=== PATIENT | female | born 1995 | race Caucasian/White ===

== ENCOUNTER 2020-01-21 12:51 | Outpatient (CLI) | payer OTHER, MEDICAID, SELFPAY ==
--- NOTE | ~2020-01-21 | US_ITS ---
EXAMINATION: US OB <=14 wk fetus w TV DATE: 01/21/2020 13:47 INDICATION: Pelvic pain during first trimester TECHNIQUE: Real-time pelvic transabdominal and transvaginal ultrasound was performed. COMPARISON: None. FINDINGS: The uterus measures 6.7 x 3.8 x 4.7 cm. There is an intrauterine gestational sac. A yolk s ac is identified. heart motion is identified measuring 123 beats per minute (bpm) by M-mode Dop pler. The crown rump length measures 6 mm , which correlates with an estimated gestational age of 6 weeks and 3 day(s) (+/-) 4 day(s). The right ovary measures 2.8 x 2.3 x 2.1 cm and contains a 1.9 cm isoechoic area, consistent with hem orrhagic cyst or endometrioma. The left ovary measures 3.1 x 1.9 x 2.1 cm. There is no free fluid in the pelvis. IMPRESSION: 1. Live intrauterine with an estimated gestational age of 6 weeks and 3 day(s) (+/-) 4 day( s) and an estimated delivery date of 09/12/2020. Reviewed, dictated and finalized at location B. IMPRESSION: 1. Live intrauterine with an estimated gestational age of 6 weeks and 3 day(s) (+/-) 4 day(s) and an estimated delivery date of 09/12/2020.
== END 2020-01-21 12:52 | disposition home or self-care (01) ==
PROVIDERS: Visit Provider Nurse Practitioner Family
DX: R10.2 Pelvic and perineal pain (principal); Z32.01 Encounter for pregnancy test, result positive; Z3A.01 Less than 8 weeks gestation of pregnancy
CPT/HCPCS: 76801; 76817

== ENCOUNTER 2020-06-08 17:32 | Observation (INO) | payer OTHER, SELFPAY ==
[2020-06-08 17:40] VITALS: TEMP 36.9
[2020-06-08 17:51] VITALS: BMI 23.6
[2020-06-08 18:00] VITALS: BP 124/87; PULSE 84
[2020-06-08 18:12] LABS: Add Urine Microscopic? YES; Appearance Urine Clear (Clear); Bacteria Urine Trace /hpf; Bilirubin Urine Negative (Negative); Blood Urine Negative (Negative); Color Urine Yellow (Yellow); Glucose Urine UA 1+ mg/dL (Negative); Ketones Urine Negative (Negative); Leukocyte Esterase Ur 3+ LEU/UL (NEGATIVE); Mucus Urine Rare /lpf; Nitrate Urine Negative (Negative); Protein Urine Negative (Negative); Specific Grav Ur 1.015 (1.001-1.035); Squamous Epithelial Cell Urine Moderate /hpf (Few); Urobilinogen Urine Negative mg/dL (<2.0)
--- NOTE | 2020-06-11 08:25 | P.PNOB_ITS ---
OB - Triage/Final Diagnosis Evaluation Laboratory results: Laboratory Tests 06/08/20 18:00 Urine Color Yellow Urine Appearance Clear Urine pH 6.0 Ur Specific [place] 1.015 Urine Protein Negative Urine Glucose (UA) 1+ H Urine Ketones Negative Ur Blood (Man) Negative Urine Nitrate Negative Urine Bilirubin Negative Urine Urobilinogen Negative Ur Leukocyte Esterase 3+ H Urine RBC 6-10 H Urine WBC 10-15 H Ur Squamous Epith Cells Moderate H Urine Bacteria Trace Urine Mucus Rare Final Diagnosis (1) Decreased movement: Code(s): O36.8190 - Decreased movements, unspecified trimester, not applicable or unspecified Status: Acute
== END 2020-06-08 19:00 | disposition home or self-care (01) ==
PROVIDERS: Admitting Provider Obstetrics & Gynecology; PCP Nurse Practitioner Family; Visit Provider Obstetrics & Gynecology
DX: O36.8120 Decreased fetal movements, second trimester, not applicable or unspecified (principal); Z3A.26 26 weeks gestation of pregnancy
CPT/HCPCS: 81001; 87086; 87088; G0378; G0379

== ENCOUNTER 2020-08-09 22:59 | Observation (INO) | payer OTHER, SELFPAY ==
[2020-08-09 23:10] VITALS: TEMP 36.5
[2020-08-09 23:20] VITALS: BMI 25.9
--- NOTE | 2020-08-09 23:22 | OBADM ---
This patient, Brianna Waterman, admitted to the OB room OB Post 116 for observation. Patient/family oriented to hospital policies and general routines including ID bracelet, bed and alarms, visiting hours, pain management, procedures, bathroom and other care routines, personal items, smoking policy, room service/diet, and visiting hours. Patient/Family are encouraged to report perceived risks to care and to ask questions if they do not understand what they are told or what they should do.
[2020-08-09 23:31] VITALS: BP 119/80; PULSE 74
--- NOTE | 2020-08-10 08:12 | PM.OBTRLD ---
OB - Triage/Final Diagnosis Visit Information Date of evaluation: 08/09/20 Reason for evaluation: other (fall) Evaluation Vital signs: Vital Signs - 24 hr 08/09/20 23:10 08/09/20 23:31 Temperature 36.5 C Pulse Rate 74 Blood Pressure 119/80
== END 2020-08-10 00:49 | disposition home or self-care (01) ==
PROVIDERS: Admitting Provider Student in an Organized Health Care Education/Training Program; PCP Nurse Practitioner Family; Visit Provider Student in an Organized Health Care Education/Training Program
DX: Z04.1 Encounter for examination and observation following transport accident (principal); O99.893 Other specified diseases and conditions complicating puerperium; V89.2XXA Person injured in unspecified motor-vehicle accident, traffic, initial encounter; Z3A.34 34 weeks gestation of pregnancy
CPT/HCPCS: 84112; G0378; G0379

== ENCOUNTER 2020-09-06 07:53 | Outpatient (CLI) | payer OTHER, SELFPAY ==
[2020-09-06] VITALS (13 sets, daily range): BP systolic 116–138; BP diastolic 83–103; PULSE 78–105; RESP 18; TEMP 36.7; BMI 25.9
[2020-09-06 09:11] LABS: Basophils Percent Auto 0.3 % (0.2-1.2); Eosinophils Absolute Auto 0.2 K/mm3 (0-0.3); Eosinophils Percent Auto 2.4 % (0-4.4); Hematocrit 33.7 % (37.0-47.0); Hemoglobin 11.7 g/dL (12.0-15.0); Immature Granulocyte Absolute 0.04 K/mm3 (0.00-0.031); Immature Granulocyte Percent A 0.4 % (0-0.5); Lymphocytes Absolute Auto 1.85 K/mm3 (0.9-3.2); Lymphocytes Percent Auto 19.6 % (18.3-44.2); Mean Corpuscular HGB Conc 34.7 g/dl (32-36); Mean Corpuscular Hemoglobin 31.1 pg (26-34); Mean Corpuscular Volume 89.6 fl (80-100); Mean Platelet Volume 10.5 fl (7.4-10.4); Monocytes Absolute Auto 0.8 K/mm3 (0.1-0.6); Monocytes Percent Auto 8.6 % (2.6-8.5); Neutrophils Absolute Auto 6.5 K/mm3 (1.3-6.7); Neutrophils Percent Auto 68.7 % (45.5-73.1); Platelet Count Result 232 k/mm3 (150-375); Red Blood Count 3.76 M/mm3 (4.2-5.4); Red Cell Distribution Width 12.2 % (11.5-14.5); White Blood Count 9.4 K/mm3 (4.5-10.0)
[2020-09-06 09:16] LABS: Add Urine Microscopic? YES; Appearance Urine Cloudy (Clear); Bacteria Urine 1+ /hpf; Bilirubin Urine Negative (Negative); Blood Urine 1+ (Negative); Color Urine Yellow (Yellow); Glucose Urine UA Negative (Negative); Ketones Urine Negative (Negative); Leukocyte Esterase Ur 2+ LEU/UL (Negative); Mucus Urine Rare /lpf; Nitrate Urine Negative (Negative); Protein Urine Negative (Negative); Specific Grav Ur 1.011 (1.001-1.035); Squamous Epithelial Cell Urine Many /hpf (Few); Urobilinogen Urine Negative mg/dL (<2.0)
[2020-09-06 09:23] LABS: Total Protein Urine Random 11 mg/dL
[2020-09-06 09:24] LABS: Alanine Aminotransferase 11 U/L (4-35); Albumin Level 3.5 g/dL (3.5-5.1); Alkaline Phosphatase 139 U/L (38-126); Anion Gap 8 mmol/L (8-16); Aspartate Amino Transferase 24 U/L (14-36); Bilirubin,Total 0.3 mg/dL (0.2-1.3); Blood Urea Nitrogen 8 mg/dL (7-17); Calcium 8.8 mg/dL (8.4-10.2); Carbon Dioxide 23 mmol/L (22-30); Chloride 103 mmol/L (98-107); Estimated CRCL calculation 168 ml/min; Estimated Glomerular Filt Rate > 60; Glucose 82 mg/dL (65-105); Sodium 134 mmol/L (137-145); Uric Acid 4.7 mg/dL (2.5-7.5)
--- NOTE | 2020-09-06 09:31 | PC.NURSE ---
0900, 0915, and 0928 BP's were taken in pt's right arm (DBP higher than in left). 135/102, 138/103. and 134/97 respectively. BP in left arm at 0926 is 119/83.
--- NOTE | 2020-09-06 10:09 | PC.NURSE ---
Dr. Neal returned page and informed of lab results and reactive NST. Discussed BP's including higher DBP in right arm. Headache has gone down from a 7 to a 4. MD will call in prescription for Fioricet. OK to discharge pt to home and keep office appointment on Tuesday. Breakfast tray was just brought to pt. Will discharge when she is done eating.
== END 2020-09-06 10:38 | disposition home or self-care (01) ==
LOC: ANHOBOP 07:58 → ANHOBPP 07:58
PROVIDERS: PCP Nurse Practitioner Family; Visit Provider Obstetrics & Gynecology
DX: O13.9 Gestational [pregnancy-induced] hypertension without significant proteinuria, unspecified trimester (principal); Z3A.00 Weeks of gestation of pregnancy not specified
CPT/HCPCS: 36415; 59025; 80053; 81001; 82570; 84156; 84550; 85025; 87086; 87088; 99199; A9270

== ENCOUNTER 2020-09-09 16:43 | Inpatient (IN) | payer OTHER, SELFPAY ==
[2020-09-09] VITALS (15 sets, daily range): BP systolic 124–143; BP diastolic 88–100; PULSE 83–105; TEMP 36.4–36.7; BMI 26.6
[2020-09-09 18:56] LABS: Basophils Percent Auto 0.3 % (0.2-1.2); Eosinophils Absolute Auto 0.1 K/mm3 (0-0.3); Eosinophils Percent Auto 1.4 % (0-4.4); Hematocrit 34.5 % (37.0-47.0); Hemoglobin 11.9 g/dL (12.0-15.0); Immature Granulocyte Absolute 0.06 K/mm3 (0.00-0.031); Immature Granulocyte Percent A 0.6 % (0-0.5); Lymphocytes Absolute Auto 1.84 K/mm3 (0.9-3.2); Lymphocytes Percent Auto 18.3 % (18.3-44.2); Mean Corpuscular HGB Conc 34.5 g/dl (32-36); Mean Corpuscular Hemoglobin 30.9 pg (26-34); Mean Corpuscular Volume 89.6 fl (80-100); Mean Platelet Volume 10.5 fl (7.4-10.4); Monocytes Percent Auto 9.5 % (2.6-8.5); Neutrophils Percent Auto 69.9 % (45.5-73.1); Platelet Count Result 256 k/mm3 (150-375); Red Blood Count 3.85 M/mm3 (4.2-5.4); Red Cell Distribution Width 12.2 % (11.5-14.5); White Blood Count 10.1 K/mm3 (4.5-10.0)
[2020-09-09 19:07] LABS: Uric Acid 4.1 mg/dL (2.5-7.5)
[2020-09-09 19:08] LABS: Alanine Aminotransferase 14 U/L (4-35); Albumin Level 3.7 g/dL (3.5-5.1); Alkaline Phosphatase 137 U/L (38-126); Anion Gap 7 mmol/L (8-16); Aspartate Amino Transferase 23 U/L (14-36); Bilirubin,Total 0.3 mg/dL (0.2-1.3); Blood Urea Nitrogen 9 mg/dL (7-17); Calcium 9.3 mg/dL (8.4-10.2); Carbon Dioxide 22 mmol/L (22-30); Chloride 106 mmol/L (98-107); Estimated Glomerular Filt Rate > 60; Glucose 111 mg/dL (65-105); Potassium 3.8 mmol/L (3.4-5.0); Sodium 135 mmol/L (137-145)
[2020-09-09] MEDS: DINOPROSTONE 10 MG VAG INSERT VAGINAL (19:33)
[2020-09-09] MEDS: LACTATED RINGERS 1,000 ML 125 ML IV CONT (19:47)
[2020-09-09] MEDS: ceFAZolin 2 GM/D5W 50 ML 2 GM/50 ML BAG IVPB (19:47)
[2020-09-09 20:21] LABS: Add Urine Microscopic? YES; Appearance Urine Cloudy (Clear); Bacteria Urine Trace /hpf; Bilirubin Urine Negative (Negative); Blood Urine Negative (Negative); Color Urine Yellow (Yellow); Glucose Urine UA Negative (Negative); Ketones Urine Negative (Negative); Leukocyte Esterase Ur 1+ LEU/UL (NEGATIVE); Mucus Urine Rare /lpf; Nitrate Urine Negative (Negative); Protein Urine 1+ mg/dL (Negative); Specific Grav Ur 1.015 (1.001-1.035); Squamous Epithelial Cell Urine Many /hpf (Few); Urobilinogen Urine Negative mg/dL (<2.0)
[2020-09-09 20:24] LABS: Total Protein Urine Random 15 mg/dL
[2020-09-10] VITALS (146 sets, daily range): BP systolic 116–188; BP diastolic 69–141; PULSE 66–156; RESP 17; TEMP 36.4–37.3; O2SAT 76–100
[2020-09-10] MEDS: fentaNYL CITRATE INJ (*CRX) 100 MCG/2 ML VIAL 50 MCG IV PUSH (05:02)
[2020-09-10] MEDS: OXYTOCIN 30 UNITS/NS 500 ML 30 UNITS/500 ML BAG 6 UNITS IV CONT (06:34)
--- NOTE | 2020-09-10 06:40 | LDADM ---
This patient, Brianna Waterman, was admitted to Labor/Delivery/Recovery 109 on 09/09/20 at 16:43. Plans for labor, pain management and were discussed with patient. Patient/family oriented to hospital policies and general routines including ID bracelet, bed and alarms, visiting hours, pain management, procedures, bathroom and other care routines, personal items, smoking policy, room service/diet and guest tray routines, infant security routines, and visiting hours. Patient/Family are encouraged to report perceived risks to care and to ask questions if they do not understand what they are told or what they should do. See OBIX for further documentation.
[2020-09-10 07:35] LABS: Rapid Plasma Reagin Non-Reactive (NonReactive)
--- NOTE | 2020-09-10 08:28 | WPDANESEPP ---
Anes - Eval Pre Procedure Procedure: labor epidural Date/Time: 09/10/20 08:28 Surgeon: adriana Pre Op Diagnosis: Induction of Labor Patient Data Age: 25 Gender: F Height: 1.7 m Weight: 77 kg Last Vital Signs Temp 36.8 C 09/10/20 07:00 Pulse 82 09/10/20 08:15 BP 148/101 H 09/10/20 08:15 Allergies Allergy/AdvReac Type Severity Reaction Status Date / Time amoxicillin Allergy Unknown Rash Verified 09/06/20 08:31 Penicillins Allergy Unknown Rash Verified 09/06/20 08:31 sulfamethoxazole Allergy Unknown Hives Verified 09/06/20 08:32 trimethoprim Allergy Unknown Hives Verified 09/06/20 08:32 Home Medications Medication Instructions Recorded Confirmed Type Vitamin Plus Low Iron 1 tablet DAILY 08/09/20 09/06/20 History sertraline 50 mg DAILY 08/09/20 09/06/20 History Laboratory Tests 09/09/20 09/09/20 09/09/20 18:49 18:49 18:49 WBC 10.1 K/mm3 H K/mm3 (4.5-10.0) RBC 3.85 M/mm3 L M/mm3 (4.2-5.4) Hgb 11.9 g/dL L g/dL (12.0-15.0) Hct 34.5 % L % (37.0-47.0) MCV 89.6 fl fl (80-100) MCH 30.9 pg pg (26-34) MCHC 34.5 g/dl g/dl (32-36) RDW 12.2 % % (11.5-14.5) Plt Count 256 k/mm3 k/mm3 (150-375) MPV 10.5 fl H fl (7.4-10.4) Immature Gran % (Auto) 0.6 % H % (0-0.5) Neut % (Auto) 69.9 % % (45.5-73.1) Lymph % (Auto) 18.3 % % (18.3-44.2) [place] % (Auto) 9.5 % H % (2.6-8.5) Eos % (Auto) 1.4 % % (0-4.4) Baso % (Auto) 0.3 % % (0.2-1.2) Lymph # (Auto) 1.84 K/mm3 K/mm3 (0.9-3.2) [place] # (Auto) 1.0 K/mm3 H K/mm3 (0.1-0.6) Eos # (Auto) 0.1 K/mm3 K/mm3 (0-0.3) Baso # (Auto) 0.0 K/mm3 K/mm3 (0.0-0.1) Abs Immat Gran (auto) 0.06 K/mm3 H K/mm3 (0.00-0.031) Absolute Neuts (auto) 7.0 K/mm3 H K/mm3 (1.3-6.7) Absolute Nucleated RBC 0.0 K/mm3 K/mm3 (0.0-0.012) Nucleated RBC % 0.0 % % (0.0-0.2) Sodium Potassium Chloride Carbon Dioxide Anion Gap BUN Creatinine Estim Creat Clear Calc Estimated GFR Glucose Uric Acid 4.1 mg/dL mg/dL (2.5-7.5) Calcium Total Bilirubin AST ALT Alkaline Phosphatase Total Protein Albumin Urine Color Urine Appearance Urine pH Ur Specific [place] Urine Protein Urine Glucose (UA) Urine Ketones Ur Blood (Man) Urine Nitrate Urine Bilirubin Urine Urobilinogen Ur Leukocyte Esterase Urine RBC Urine WBC Ur Squamous Epith Cells Urine Bacteria Urine Mucus U Random Total Protein Urine Collection Time Ur 24 Hour Volume Urine Creatinine Height (in) Creatinine Clearance RPR Non-reactive (NonReactive) Blood Type Antibody Screen 09/09/20 09/09/20 09/09/20 18:49 18:49 19:57 WBC RBC Hgb Hct MCV MCH MCHC RDW Plt Count MPV Immature Gran % (Auto) Neut % (Auto) Lymph % (Auto) [place] % (Auto) Eos % (Auto) Baso % (Auto) Lymph # (Auto) [place] # (Auto) Eos # (Auto) Baso # (Auto) Abs Immat Gran (auto) Absolute Neuts (auto) Absolute Nucleated RBC Nucleated RBC % Sodium 135 mmol/L L mmol/L (137-145) Potassium
[2020-09-10] MEDS: LACTATED RINGERS 1,000 ML 125 ML IV CONT ×2 (08:29→09:58)
--- NOTE | 2020-09-10 08:55 | WPDOBADMIT ---
Obstetrics - Admit Note Admission Note: record reviewed. Additions to the history and/or subsequent changes in the physical findings follow. 25 y/o G1 at 39 2/7 weeks who presented last evening because of headaches and elevated bp readings at home. BP here has been overall OK. Headache resolved after Fioricet. She has opted for induction of labor. Had Cervidil overnight, then had SROM at 0530. Now feeling more contractions. Receiving Ancef for GBS colonization. AVSS NST reactive TOCO: irregular contractions ABD soft, nontender, gravid, vertex EXT nontender Cervix 2-3/50/-2. AROM forebag with clear fluid. IUPC placed. A: IUP at term with intermittently elevated bp and headaches. Headache has resolved. No evidence of preeclampsia. GBS pos. P: Induction of labor, as above. S/p Cervidil. Now receiving oxytocin. Anticipate . Ancef for GBS.
[2020-09-10] MEDS: ONDANSETRON INJ 4 MG/2 ML VIAL IV PUSH (10:00)
--- NOTE | 2020-09-10 12:15 | PM.OBPNLAB ---
Pain Control Date/time seen: 09/10/20 14:17 Comments: Comfortable with epidural. Pelvic Exam Dilation (cm): 4 Effacement (%): 80 station: -1 Contractions Contraction pattern: Regular Status status: Category l Assessment and Plan Comments: Continue labor.
--- NOTE | 2020-09-10 14:17 | PM.OBDSVD ---
DS: Admitting Diagnosis Admitting Diagnosis Admitting Diagnosis: Induction of Labor DS: Discharge Diagnosis Discharge Diagnosis (1) (normal spontaneous vaginal delivery): Code(s): O80 - Encounter for full-term uncomplicated delivery Status: Acute OB - DS: Summary OB Procedures : None OB Procedures Intrapartum: Spontaneous Vag Delivery OB Procedures: : None DS: Data Data Completed and Pending Labs on day of discharge: Labs from last 24 hours 09/09/20 09/09/20 09/09/20 19:57 19:57 18:49 WBC RBC Hgb Hct MCV MCH MCHC RDW Plt Count MPV Immature Gran % (Auto) Neut % (Auto) Lymph % (Auto) [place] % (Auto) Eos % (Auto) Baso % (Auto) Lymph # (Auto) [place] # (Auto) Eos # (Auto) Baso # (Auto) Abs Immat Gran (auto) Absolute Neuts (auto) Absolute Nucleated RBC Nucleated RBC % Sodium 135 L Potassium 3.8 Chloride 106 Carbon Dioxide 22 Anion Gap 7 L BUN 9 Creatinine 0.60 L Estim Creat Clear Calc Not Reportable Estimated GFR > 60 Glucose 111 H Uric Acid Calcium 9.3 Total Bilirubin 0.3 AST 23 ALT 14 Alkaline Phosphatase 137 H Total Protein 7.0 Albumin 3.7 Urine Color Yellow Urine Appearance Cloudy H Urine pH 6.0 Ur Specific [place] 1.015 Urine Protein 1+ H Urine Glucose (UA) Negative Urine Ketones Negative Ur Blood (Man) Negative Urine Nitrate Negative Urine Bilirubin Negative Urine Urobilinogen Negative Ur Leukocyte Esterase 1+ H Urine RBC 3-5 H Urine WBC 4-6 H Ur Squamous Epith Cells Many H Urine Bacteria Trace Urine Mucus Rare U Random Total Protein 15 Urine Collection Time Cancelled Ur 24 Hour Volume Cancelled Urine Creatinine 116.0 Height (in) Cancelled Creatinine Clearance Cancelled RPR Blood Type Antibody Screen 09/09/20 09/09/20 09/09/20 18:49 18:49 18:49 WBC 10.1 H RBC 3.85 L Hgb 11.9 L Hct 34.5 L MCV 89.6 MCH 30.9 MCHC 34.5 RDW 12.2 Plt Count 256 MPV 10.5 H Immature Gran % (Auto) 0.6 H Neut % (Auto) 69.9 Lymph % (Auto) 18.3 [place] % (Auto) 9.5 H Eos % (Auto) 1.4 Baso % (Auto) 0.3 Lymph # (Auto) 1.84 [place] # (Auto) 1.0 H Eos # (Auto) 0.1 Baso # (Auto) 0.0 Abs Immat Gran (auto) 0.06 H Absolute Neuts (auto) 7.0 H Absolute Nucleated RBC 0.0 Nucleated RBC % 0.0 Sodium Potassium Chloride Carbon Dioxide Anion Gap BUN Creatinine Estim Creat Clear Calc Estimated GFR Glucose Uric Acid Calcium Total Bilirubin AST ALT Alkaline Phosphatase Total Protein Albumin Urine Color Urine Appearance Urine pH Ur Specific [place] Urine Protein Urine Glucose (UA) Urine Ketones Ur Blood (Man) Urine Nitrate Urine Bilirubin Urine Urobilinogen Ur Leukocyte Esterase Urine RBC Urine WBC Ur Squamous Epith Cells Urine Bacteria Urine Mucus U Random Total Protein Urine Collection Time Ur 24 Hour Volume Urine Creatinine Height (in) Creatinine Clearance RPR Non-reactive Blood Type A Positive Antibody Screen Negative 09/09/20 18:49 WBC RBC Hgb Hct MCV MCH MCHC RDW Plt Count MPV Immature Gran % (Auto) Neut % (Auto) Lymph % (Auto) [place] % (Auto) Eos % (Auto) Baso % (Auto) Lymph # (Auto) [place] # (Auto) Eos # (Auto) Baso # (Auto) Abs Immat Gran (auto) Absolute Neuts (auto) Absolute Nucleated RBC Nucleated RBC % Sodium Potassium Chloride Carbon Dioxide Anion Gap BUN Creatinine Estim Creat Clear Calc Estimated GFR Glucose Uric Acid 4.1 Calcium Total Bilirubin AST ALT Alkaline Phosphatase Total Protein Albumin Urine Color Urine Appearance Urine pH Ur Specific [place] Urine Protein
--- NOTE | 2020-09-10 15:58 | P.PCNOB_ITS ---
OB - Delivery Note Procedure Delivery date: 09/10/20 Procedure: Induction of labor with Induction method: per pitocin protocol and per cervidil protocol Delivery monitor: external FHT, external uterine and internal uterine Route of delivery: Laceration Description: Perineal - 2nd Degree Delivery repair: vicryl (3-0) Specimen: Yes (cord blood) Estimated blood loss (mL): 140 Anesthesia type: Epidural Disposition: PACU Complications: None Narrative: 25 y/o G1 at 39 2/7 weeks gestation who presented to the hospital with a headache and an elevated bp at home. Ruled out for preeclampsia here, and her headache improved with Fioricet. However, she opted to go ahead with elective induction of labor. Cervidil was placed overnight. Ancef was given IV for GBS colonization. She had SROM at 0530 and the Cervidil was withdrawn and oxytocin started intravenously. She received an epidural for pain control. Her labor progressed and her cervix dilated completely. She pushed with good effort and delivered the 's head to the perineum, followed by the body. The nose and mouth were bulb suctioned. After a delay, the cord was clamped and cut. The was handed off the field. Cord blood was collected. The placenta delivered spontaneously and was grossly normal in appearance. The usual 3 vessel cord was noted. A second degree midline perineal laceration was sustained. This was reapproximated using 3 0 Vicryl in the usual layered fashion. Excellent hemostasis resulted as did excellent reapproximation of the normal anatomy. Needle and instrument counts were correct. The patient was taken to recovery room in stable condition. The infant went to the nursery in stable condition. I was present and scrubbed for the entire delivery. [place] Baby Date of : 09/10/20 Time of : 15:32 Weeks of gestation at delivery: 39 gender: Male Weight (pounds): 7 Weight (ounces): 9 presentation: vertex position: Right Occiput Anterior Placenta delivery description: Spontaneous and Normal Configuration cord vessel description: 3 Vessels score one minute: 9 score five minutes: 9
[2020-09-10] MEDS: OXYTOCIN 30 UNITS/NS 500 ML 30 UNITS/500 ML BAG 125 UNITS IV CONT (16:05)
[2020-09-10] MEDS: WITCH HAZEL 40 PADS 1 PAD TOPICAL (17:58)
[2020-09-10] MEDS: BENZOCAINE 20% AER SPR (*SP) 56 GM CAN 1 SPRAY TOPICAL (17:59)
[2020-09-10] MEDS: IBUPROFEN 600 MG TABLET PO (18:48)
--- NOTE | 2020-09-10 18:52 | OBPPTRN ---
Patient transferred to post room #284 via wheelchair with in crib. Support person present. Oriented to unit, room, information board, rooming in, admission packet and security measures. Patient verbalizes understanding.
[2020-09-11] MEDS: IBUPROFEN 600 MG TABLET PO ×3 (05:01→23:12)
[2020-09-11 05:51] LABS: Hematocrit 30.7 % (37.0-47.0); Hemoglobin 10.3 g/dL (12.0-15.0)
[2020-09-11] MEDS: BENZOCAINE 20% AER SPR (*SP) 56 GM CAN 1 SPRAY TOPICAL (07:55)
[2020-09-11] MEDS: DOCUSATE SODIUM 100 MG CAPSULE PO ×2 (07:55→16:48)
[2020-09-11] MEDS: WITCH HAZEL 40 PADS 1 PAD TOPICAL (07:55)
[2020-09-11] MEDS: SERTRALINE HCL 50 MG TABLET PO (07:56)
[2020-09-11 08:00] VITALS: BP 123/86; PULSE 82; RESP 18; TEMP 36.9
--- NOTE | 2020-09-11 09:43 | WPDANLDPN2 ---
Anes-Prog Note L&D Date/Time: 09/11/20 09:43 Comfortable throughout: labor and delivery Neuraxial method: epidural Epidural/Spinal procedure site: clean & non-tender Neuro status: Neuro function grossly intact. Cardiovascular status: normal Respiratory status: normal Airway patency: baseline Mental status: baseline Post-Op hydration status: normal Vital Signs: Last Vital Signs Temp 36.9 C 09/11/20 08:00 Pulse 82 09/11/20 08:00 Resp 18 09/11/20 08:00 BP 123/86 09/11/20 08:00 Pulse Ox 100 09/10/20 14:07 Pain score (VAS): 0 Post-procedural complaints: none Patient feedback: Patient satisfied with anesthetic care.
[2020-09-11] MEDS: DIBUCAINE 1% OINTMENT 30 GM TUBE 1 APPLIC TOPICAL (11:59)
--- NOTE | 2020-09-11 13:09 | PM.OBPNVD ---
OB - PN: Subj Subjective Date/time seen: 09/11/20 13:09 Narrative: Pain OK. OB - PN: Obj Data Labs CBC & Chem 7: 09/11/20 05:07 09/09/20 18:49 Labs: Laboratory Results - last 24 hr 09/11/20 05:07 Hgb 10.3 L Hct 30.7 L OB - PN A/P Plan Comments: A: PPD#1, doing well. P: Routine care. Exam Psych: Other: AVSS ABD soft, nontender, fundus firm EXT nontender
[2020-09-11] MEDS: ACETAMINOPHEN 325 MG TABLET 650 MG PO (16:48)
[2020-09-11 20:00] VITALS: BP 134/86; PULSE 89; RESP 20; TEMP 36.7; O2SAT 99
[2020-09-12 08:00] VITALS: BP 124/76; PULSE 86; RESP 18; RESP 20; TEMP 36.9
[2020-09-12] MEDS: IBUPROFEN 600 MG TABLET PO ×2 (08:33→14:27)
[2020-09-12] MEDS: BENZOCAINE 20% AER SPR (*SP) 56 GM CAN 1 SPRAY TOPICAL (08:33)
[2020-09-12] MEDS: DOCUSATE SODIUM 100 MG CAPSULE PO (08:33)
[2020-09-12] MEDS: WITCH HAZEL 40 PADS 1 PAD TOPICAL (08:33)
[2020-09-12] MEDS: SERTRALINE HCL 50 MG TABLET PO (08:33)
--- NOTE | 2020-09-12 09:00 | PC.NURSE ---
Patient viewed the discharge video Mother & Baby Care, The First Two Weeks . Patient was given the opportunity and encouraged to ask questions. Patient verbalized understanding of information shared and has been given the mother/baby guide for home reference.
--- NOTE | 2020-09-12 09:01 | PM.OBPNVD ---
OB - PN: Subj Subjective Date/time seen: 09/12/20 09:01 Narrative: Pain OK. Would like to go home. OB - PN: Obj Data Labs CBC & Chem 7: 09/11/20 05:07 09/09/20 18:49 OB - PN A/P Plan Comments: A: PPD#2, doing well. P: Home to f/u 6 weeks. Exam Psych: Other: AVSS ABD soft, nontender, fundus firm EXT nontender
--- NOTE | 2020-09-12 10:23 | PC.NURSE ---
Self care and infant care discharge instructions given including follow up visit date and time. Pt. verbalized understanding. No questions or concerns verbalized. FOB at side.
[2020-09-12] MEDS: TETANUS,DIPHTHERIA,AC PERTUSSIS ADULT (0.5 ML) BOOSTRIX IM (14:28)
[2020-09-13 10:24] VITALS: BP 134/87; PULSE 104; RESP 22; O2SAT 100
== END 2020-09-12 15:00 | disposition home or self-care (01) | DRG 560 ==
LOC: ANHOBPP 17:51 → ANHLDR 18:09 → ANHOB2 09-10 19:01
PROVIDERS: Admitting Provider Obstetrics & Gynecology; PCP Nurse Practitioner Family; Visit Provider Obstetrics & Gynecology
DX: O99.824 Streptococcus B carrier state complicating childbirth (principal); Z37.0 Single live birth; Z3A.39 39 weeks gestation of pregnancy; O70.1 Second degree perineal laceration during delivery; O36.8330 Maternal care for abnormalities of the fetal heart rate or rhythm, third trimester, not applicable or unspecified
CPT/HCPCS: 36415; 80053; 81001; 82570; 84156; 84550; 85014; 85018; 85025; 86592; 86850; 86900; 86901; 87086; 87088; 90715; A9270; J0690; J2405; J2590; J2795; J3010; J7120

== ENCOUNTER 2020-09-17 10:13 | Outpatient (CLI) | payer OTHER, SELFPAY ==
[2020-09-17] VITALS (8 sets, daily range): BP systolic 120–144; BP diastolic 82–96; PULSE 63–74
[2020-09-17 10:56] LABS: Basophils Percent Auto 0.5 % (0.2-1.2); Eosinophils Absolute Auto 0.2 K/mm3 (0-0.3); Eosinophils Percent Auto 2.2 % (0-4.4); Hematocrit 33.6 % (37.0-47.0); Hemoglobin 11.5 g/dL (12.0-15.0); Immature Granulocyte Absolute 0.03 K/mm3 (0.00-0.031); Immature Granulocyte Percent A 0.4 % (0-0.5); Lymphocytes Absolute Auto 1.98 K/mm3 (0.9-3.2); Lymphocytes Percent Auto 24.2 % (18.3-44.2); Mean Corpuscular HGB Conc 34.2 g/dl (32-36); Mean Corpuscular Volume 90.6 fl (80-100); Monocytes Absolute Auto 0.8 K/mm3 (0.1-0.6); Monocytes Percent Auto 9.5 % (2.6-8.5); Neutrophils Absolute Auto 5.2 K/mm3 (1.3-6.7); Neutrophils Percent Auto 63.2 % (45.5-73.1); Platelet Count Result 343 k/mm3 (150-375); Red Blood Count 3.71 M/mm3 (4.2-5.4); White Blood Count 8.2 K/mm3 (4.5-10.0)
[2020-09-17 11:10] LABS: Alanine Aminotransferase 32 U/L (4-35); Albumin Level 3.8 g/dL (3.5-5.1); Alkaline Phosphatase 117 U/L (38-126); Anion Gap 7 mmol/L (8-16); Aspartate Amino Transferase 34 U/L (14-36); Bilirubin,Total 0.3 mg/dL (0.2-1.3); Blood Urea Nitrogen 13 mg/dL (7-17); Calcium 9.2 mg/dL (8.4-10.2); Carbon Dioxide 28 mmol/L (22-30); Chloride 104 mmol/L (98-107); Estimated Glomerular Filt Rate > 60; Glucose 91 mg/dL (65-105); Potassium 3.8 mmol/L (3.4-5.0); Sodium 139 mmol/L (137-145)
--- NOTE | 2020-09-17 11:45 | PC.NURSE ---
[phone] Neal [phone] returned page. Informed of lab results and BPs. Pt states that her headache is still there. Will come by to see pt.
--- NOTE | 2020-09-17 12:15 | PC.NURSE ---
Dr. Neal at bedside. Discussed plan of care with pt. Ignacia D/C sherry.
--- NOTE | 2020-09-17 12:22 | WPDOBADMIT ---
Obstetrics - Admit Note Admission Note: 25 y/o PPD#7 after a vaginal delivery. Had an increase in vaginal bleeding and elevated bp at home. Also has frontal headaches, and the Fioricet does not seem to help. Finally, she feels lightheaded from time to time. On sertraline 50 mg po daily and mood is OK. AVSS (bp 130/80, hr 80) ABD soft, nontender, fundus firm and involuting well. EXT nontender with no edema Pelvic: small dark blood in vagina. Cervix closed. Labs: hgb 11.5, CMP normal, UA in office showed trace protein A: Headache. No evidence of preeclampsia. P: Try sumatriptan 100 mg po prn headache. F/u as originally scheduled.
== END 2020-09-17 12:25 | disposition home or self-care (01) ==
LOC: ANHOBOP 10:17 → ANHOBPP 10:18
PROVIDERS: PCP Nurse Practitioner Family; Visit Provider Obstetrics & Gynecology
DX: O13.5 Gestational [pregnancy-induced] hypertension without significant proteinuria, complicating the puerperium (principal)
CPT/HCPCS: 36415; 80053; 84550; 85025; 99199

== ENCOUNTER 2021-01-20 09:27 | Emergency (ER) | payer OTHER, SELFPAY ==
[2021-01-20 09:50] VITALS: BP 149/100; PULSE 87; RESP 20; TEMP 36.9; O2SAT 100
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
[2021-01-20] MEDS: methylPREDNISolone SOD SUCC 125 MG VIAL IV PUSH (10:07)
[2021-01-20] MEDS: KETOROLAC 15 MG/ML VIAL (*BKC) IV PUSH (10:07)
[2021-01-20 11:20] VITALS: BP 134/95; PULSE 87; RESP 17; O2SAT 100
== END 2021-01-20 11:30 | disposition home or self-care (01) ==
PROVIDERS: Emergency Provider Emergency Medicine; PCP Nurse Practitioner Family
DX: S06.0X0A Concussion without loss of consciousness, initial encounter (principal); Y04.2XXA Assault by strike against or bumped into by another person, initial encounter
CPT/HCPCS: 96374; 96375; 99284; J1885; J2930

== ENCOUNTER 2021-01-21 14:11 | Outpatient (CLI) | payer OTHER, SELFPAY ==
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
== END 2021-01-21 14:12 | disposition home or self-care (01) ==
PROVIDERS: PCP Nurse Practitioner Family; Visit Provider Nurse Practitioner Family
DX: S09.90XD Unspecified injury of head, subsequent encounter (principal); R11.0 Nausea; R42 Dizziness and giddiness; X58.XXXD Exposure to other specified factors, subsequent encounter; H53.8 Other visual disturbances; G44.311 Acute post-traumatic headache, intractable
CPT/HCPCS: 70450

== ENCOUNTER 2021-07-26 17:39 | Emergency (ER) | payer OTHER, SELFPAY ==
--- NOTE | 2021-07-26 17:50 | ECG_ITS ---
Measurements Intervals [place] Rate: 96 P: 34 MD: 167 QRS: 2 QRSD: 97 T: 42 QT: 349 QTc: 443 Interpretive Statements SINUS RHYTHM DELAYED PRECORDIAL R/S TRANSITION BORDERLINE ST-T WAVE ABNORMALITY- ANT/HIGH LAT LEADS BORDERLINE ECG Electronically Signed On 07-26-2021 19:27:36 CDT by Maxim Stringer D.O.
--- NOTE | 2021-07-26 17:51 | PC.NURSE ---
After EKG, patient states she is going to another hospital due to long wait. Patient informed she can return to ED if symptoms continue or worsen.
== END 2021-07-26 17:51 | disposition left against medical advice (07) ==
LOC: ANHED 18:04
PROVIDERS: Emergency Provider Emergency Medicine
DX: Z04.89 Encounter for examination and observation for other specified reasons (principal); Z53.21 Procedure and treatment not carried out due to patient leaving prior to being seen by health care provider
CPT/HCPCS: 93005; 99199

== ENCOUNTER 2021-07-31 16:16 | Emergency (ER) | payer OTHER, SELFPAY ==
--- NOTE | 2021-07-31 16:20 | ED.SKABFB ---
HPI - Skin/Abscess/Foreign Bdy General Chief complaint: Skin/Abscess/Foreign Body Stated complaint: L ARM PAIN S/P IV Time Seen by Provider: 07/31/21 16:20 Source: patient and RN notes reviewed History of Present Illness HPI narrative: Patient is a 26-year-old female who presents the urgent care with complaints of pain and tenderness to the left AC after having an IV placed on Tuesday. Patient states that she was admitted from the emergency room on Tuesday at [facility] for gallbladder removal. Patient states that she was discharged Tuesday evening and the area where the IV was placed has been very tender. Patient states that she is worried about infection . Patient denies of any fevers, nausea, vomiting. Denies of taking anything [id number] for her pain. No other acute complaints. No acute distress noted. Patient read the plan of care. Some parts of this dictation were generated by voice recognition software and may contain typographical and/or grammatical inaccuracies. Related Data Home Medications Medication Instructions Recorded Confirmed oxycodone-acetaminophen 07/31/21 sertraline mg 07/31/21 Allergies Allergy/AdvReac Type Severity Reaction Status Date / Time amoxicillin Allergy Unknown Rash Verified 01/20/21 09:59 Penicillins Allergy Unknown Rash Verified 01/20/21 09:59 sulfamethoxazole Allergy Unknown Hives Verified 01/20/21 09:59 trimethoprim Allergy Unknown Hives Verified 01/20/21 09:59 Review of Systems Review of Systems: CONSTITUTIONAL: Denies fever, chills, or sweats. EYES: Denies visual changes, redness, or discharge. ENT: Denies rhinorrhea, congestion, sore throat, or otalgia. CARDIOVASCULAR: Denies chest pain, palpitations, or edema. RESPIRATORY: Denies cough or dyspnea. GASTROINTESTINAL: Denies abdominal pain, nausea, vomiting, or diarrhea. GENITOURINARY: Denies dysuria or hematuria. SKIN: Reports of redness and tenderness to the IV site of the left AC MUSCULOSKELETAL: Denies back pain, joint pain, or myalgia. NEUROLOGIC: Denies headache, numbness, or weakness. All other systems reviewed are negative, except as documented in HPI. [facility] [place] Family History Family History (Updated 09/01/20 @ 13:39 by Mak Pereira RN) Father Depression Grandparent Family history of Alzheimer's disease Mother Family history of blood dyscrasia Grandparent Family history of cataracts Father Family history of mental disorder Other Family history of lung cancer Social History Social History Smoking status: Never smoker Alcohol intake: never Substance use: never Gender identity (if verbalized by the patient): Female Spiritual care concerns: No Comments At the time of my signature, I reviewed and agree with the nursing past medical, surgical, social, and family history. There is no relevant family history pertinent to the patient complaint. Exam Narrative: GENERAL: This is a well-nourished, well-developed patient, in no apparent distress. HEAD: normocephalic, atraumatic. EYES: PERRL. Sclera clear/white. Vision is grossly intact. EARS: External ears normal NOSE: External nose normal with no obvious nasal discharge, nares without redness, no rhinorrhea. THROAT: Mucous membranes moist NECK: Neck supple CARDIOVASCULAR: Regular rate and rhythm without murmurs, gallops, or rubs. RESPIRATORY: Clear to auscultation. Breath sounds equal bilaterally. No wheezes, rales, or rhonchi. SKIN: warm, intact with no suspicious lesions or rash, good texture and turgor. NEURO: awake, alert, and oriented to person, place and time. There were no obvious focal neurologic abnormalities. EXTREMITIES: No clubbing, cyanosis, or edema. Range of motion to left upper extremity within normal limits with positive strong left radial pulse and capillary refill less than 2 seconds. Mild tenderness over the left antecubital fossa without any notable swelling/ecchymosis/erythema. Course Vital Signs Vital signs: Vital S
[2021-07-31 16:51] VITALS: BP 139/90; PULSE 95; RESP 16; TEMP 36.9; O2SAT 100
== END 2021-07-31 16:45 | disposition home or self-care (01) ==
PROVIDERS: Emergency Provider Nurse Practitioner Family; PCP Nurse Practitioner Family
DX: M79.632 Pain in left forearm (principal)
CPT/HCPCS: 99213; G0463

== ENCOUNTER 2021-10-26 04:00 | Emergency (ER) | payer OTHER, SELFPAY ==
[2021-10-26] VITALS (14 sets, daily range): BP systolic 118–135; BP diastolic 84–98; PULSE 102–148; RESP 17–26; TEMP 36.9; O2SAT 95–100
[2021-10-26] MEDS: ONDANSETRON INJ 4 MG/2 ML VIAL IV PUSH (05:05)
[2021-10-26] MEDS: SODIUM CHLORIDE 0.9% IV 1,000 ML 999 ML IV CONT ×2 (05:05→06:18)
[2021-10-26 05:12] LABS: Basophils Percent Auto 0.4 % (0.2-1.2); Eosinophils Absolute Auto 0.5 K/mm3 (0-0.3); Eosinophils Percent Auto 4.6 % (0-4.4); Hematocrit 46.2 % (37.0-47.0); Hemoglobin 15.8 g/dL (12.0-15.0); Immature Granulocyte Absolute 0.04 K/mm3 (0.00-0.031); Immature Granulocyte Percent A 0.4 % (0-0.5); Lymphocytes Absolute Auto 0.31 K/mm3 (0.9-3.2); Lymphocytes Percent Auto 2.7 % (18.3-44.2); Mean Corpuscular HGB Conc 34.2 g/dl (32-36); Mean Corpuscular Hemoglobin 29.9 pg (26-34); Mean Corpuscular Volume 87.5 fl (80-100); Mean Platelet Volume 9.4 fl (7.4-10.4); Monocytes Absolute Auto 0.4 K/mm3 (0.1-0.6); Monocytes Percent Auto 3.6 % (2.6-8.5); Neutrophils Absolute Auto 10.1 K/mm3 (1.3-6.7); Neutrophils Percent Auto 88.3 % (45.5-73.1); Platelet Count Result 319 k/mm3 (150-375); Red Blood Count 5.28 M/mm3 (4.2-5.4); Red Cell Distribution Width 12.3 % (11.5-14.5); White Blood Count 11.4 K/mm3 (4.5-10.0)
[2021-10-26 05:40] LABS: Albumin Level 5.1 g/dL (3.5-5.1); Alkaline Phosphatase 145 U/L (38-126); Anion Gap 17 mmol/L (8-16); Aspartate Amino Transferase 31 U/L (14-36); Bilirubin,Total 0.6 mg/dL (0.2-1.3); Blood Urea Nitrogen 16 mg/dL (7-17); Calcium 9.5 mg/dL (8.4-10.2); Carbon Dioxide 21 mmol/L (22-30); Chloride 101 mmol/L (98-107); Estimated CRCL calculation 104 ml/min; Estimated Glomerular Filt Rate > 60; Glucose 169 mg/dL (65-110); Lipase 44 U/L (23-300); Potassium 3.8 mmol/L (3.4-5.0); Sodium 139 mmol/L (137-145)
[2021-10-26 05:47] LABS: Alanine Aminotransferase 28 U/L (4-35)
--- NOTE | 2021-10-26 06:13 | ED.NAVMDI ---
HPI - Nausea/Vomiting/Diarrhea General Chief complaint: Nausea/Vomiting/Diarrhea Stated complaint: vomiting Time Seen by Provider: 10/26/21 04:20 History of Present Illness HPI Narrative: Patient is a 26-year-old female who presents ER with nausea/vomiting and diarrhea. Symptoms began in the last 24 hours. She cannot get control them. No fevers or chills. No loss of consciousness. Patient feels very fatigued and dehydrated. She is accompanied by her mother has the same symptoms. She reports that her child had vomiting 1 day earlier but is doing well otherwise. She is vaccinated against Covid. Related Data Home Medications Medication Instructions Recorded Confirmed oxycodone-acetaminophen 07/31/21 sertraline mg 07/31/21 Allergies Allergy/AdvReac Type Severity Reaction Status Date / Time amoxicillin Allergy Unknown Rash Verified 01/20/21 09:59 Penicillins Allergy Unknown Rash Verified 01/20/21 09:59 sulfamethoxazole Allergy Unknown Hives Verified 01/20/21 09:59 trimethoprim Allergy Unknown Hives Verified 01/20/21 09:59 Review of Systems Review of Systems: All systems reviewed & are unremarkable except as noted in HPI and below Constitutional: Constitutional: Denies chills, Denies fever(s) and Reports weakness ENT: Denies nasal congestion and Denies sore throat Gastrointestinal: Gastrointestinal: Denies abdominal pain, Reports diarrhea, Reports nausea and Reports vomiting Genitourinary: Genitourinary: Denies nocturia and Denies flank pain PMFSH Past Medical History Medical History (Updated 10/26/21 @ 06:18 by Fernando Penaloza MD) Healthy female adult Surgical History Surgical History (Updated 10/26/21 @ 06:15 by Fernando Penaloza MD) No history of previous surgery Family History Family History (Updated 09/01/20 @ 13:39 by Mak Pereira RN) Father Depression Grandparent Family history of Alzheimer's disease Mother Family history of blood dyscrasia Grandparent Family history of cataracts Father Family history of mental disorder Other Family history of lung cancer Social History Social History Smoking status: Never smoker Alcohol intake: never Substance use: never Gender identity (if verbalized by the patient): Female Spiritual care concerns: No Exam Narrative: GENERAL: Uncomfortable-appearing, well-nourished, and in no acute distress. HEAD: Normocephalic, atraumatic. ENT: Mucous membranes moist. NECK: Supple. CHEST: Clear to auscultation. No respiratory distress. HEART: Tachycardic and regular. Normal peripheral pulses. ABDOMEN: Soft, nontender, nondistended. EXTREMITIES: Normal range of motion. No edema. NEURO: Alert and oriented x3. PSYCH: Normal mood and affect. Course Course Emergency Course: Patient resting comfortably and feels markedly improved. Patient saw some tachycardia so we will give her a second liter of fluid. Vital Signs Vital signs: Vital Signs Temperature 98.4 F 10/26/21 04:08 Pulse Rate 148 H 10/26/21 04:08 Respiratory Rate 18 10/26/21 04:08 Blood Pressure 130/97 H 10/26/21 04:08 Pulse Oximetry 100 10/26/21 04:08 Temperature 98.4 F 10/26/21 04:08 Pulse Rate 109 H 10/26/21 06:30 Respiratory Rate 19 10/26/21 06:16 Blood Pressure 118/84 10/26/21 06:16 Pulse Oximetry 96 10/26/21 06:30 MDM - Nausea/Vomiting/Diarrhea Lab Data Result diagrams: 10/26/21 05:04 10/26/21 05:03 Labs: Lab Results 10/26/21 10/26/21 Range/Units 05:03 05:04 WBC 11.4 H (4.5-10.0) K/mm3 RBC 5.28 (4.2-5.4) M/mm3 Hgb 15.8 H D (12.0-15.0) g/dL Hct 46.2 (37.0-47.0) % MCV 87.5 (80-100) fl MCH 29.9 (26-34) pg MCHC 34.2 (32-36) g/dl RDW 12.3 (11.5-14.5) % Plt Count 319 (150-375) k/mm3 MPV 9.4 (7.4-10.4) fl Immature Gran % (Auto) 0.4 (0-0.5) % Neut % (Auto) 88.3 H (45.5-73.1) % Lymph % (Auto) 2.7 L (18.3-44.2) % Ashley % (Auto) 3.6 (
== END 2021-10-26 07:22 | disposition home or self-care (01) ==
PROVIDERS: Emergency Provider Emergency Medicine; PCP Nurse Practitioner Family
DX: K52.9 Noninfective gastroenteritis and colitis, unspecified (principal)
CPT/HCPCS: 36415; 80053; 83690; 85025; 96361; 96374; 99284; J2405; J7030

== ENCOUNTER 2022-06-12 15:43 | Emergency (ER) | payer OTHER, SELFPAY ==
--- NOTE | ~2022-06-12 | XR_ITS ---
XR ankle LT min 3V 06/12/2022 16:26 INDICATION: Left ankle pain PROCEDURE: 4 views left ankle COMPARISON: No prior studies for comparison. FINDINGS: Fracture, dislocation or subluxation is not identified. The soft tissues appear within norm al limits. No foreign bodies are identified. IMPRESSION: 1: NO ACUTE BONE OR JOINT ABNORMALITY IDENTIFIED. Reviewed, dictated and finalized at location A.
--- NOTE | ~2022-06-12 | XR_ITS ---
XR knee LT 3V 06/12/2022 16:26 INDICATION: Left knee pain PROCEDURE: 3 views left knee COMPARISON: No prior studies for comparison. FINDINGS: Fracture, dislocation or subluxation is not identified. The soft tissues appear within norm al limits. No foreign bodies are identified. IMPRESSION: 1: NO ACUTE BONE OR JOINT ABNORMALITY IDENTIFIED. Reviewed, dictated and finalized at location A.
[2022-06-12 16:00] VITALS: BP 163/129; PULSE 106; RESP 18; TEMP 36.6; O2SAT 99
--- NOTE | 2022-06-12 17:10 | ED.LOWEXIN ---
HPI - Extremity Injury (Lower) General Chief Complaint: Extremity Injury, Lower Stated Complaint: left knee injury Time Seen by Provider: 06/12/22 16:59 Source: patient Mode of arrival: ambulatory Limitations: no limitations History of Present Illness HPI Narrative: This is a 27 year old female that presents to the after an injury just prior to arrival. Reports she jumped out of a truck bed and twisted the left knee. Reports since she has had left knee and ankle pain. Worse with movement and weightbearing. Relieved with rest. Denies decreased range of motion or numbness. Related Data Home Medications Medication Instructions Recorded Confirmed oxycodone-acetaminophen 5 mg-325 07/31/21 mg tablet sertraline 100 mg tablet mg 07/31/21 Allergies Allergy/AdvReac Type Severity Reaction Status Date / Time amoxicillin Allergy Unknown Rash Verified 06/12/22 16:10 Penicillins Allergy Unknown Rash Verified 06/12/22 16:10 sulfamethoxazole Allergy Unknown Hives Verified 06/12/22 16:10 trimethoprim Allergy Unknown Hives Verified 06/12/22 16:10 Review of Systems Review of Systems: CONSTITUTIONAL: Denies fever MUSCULOSKELETAL: Reports joint pain, and myalgia. NEUROLOGIC: Denies numbness, or weakness. All systems reviewed & are unremarkable except as noted in HPI and below PMFSH Past Medical History Medical History (Updated 06/12/22 @ 17:18 by Ofelia Millan PA-C) History of anxiety Surgical History Surgical History (Updated 06/12/22 @ 17:10 by Ofelia Millan PA-C) History of cholecystectomy Family History Family History (Updated 09/01/20 @ 13:39 by Mak Pereira RN) Father Depression Grandparent Family history of Alzheimer's disease Mother Family history of blood dyscrasia Grandparent Family history of cataracts Father Family history of mental disorder Other Family history of lung cancer Social History Social History Smoking status: Never smoker Alcohol intake: never Substance use: never Gender identity (if verbalized by the patient): Female Spiritual care concerns: No Exam Narrative: GENERAL: Well-appearing, well-nourished, and in no acute distress. HEAD: Normocephalic, atraumatic. EYES: EOMI. EXTREMITIES: Normal range of motion. No edema or obvious deformity. Normal DP pulse. Normal sensation SKIN: Warm, dry, no rash. NEURO: No focal deficits. Alert and oriented x3. PSYCH: Normal mood and affect Course Vital Signs Vital signs: Vital Signs Pulse Rate 106 H 06/12/22 16:00 Respiratory Rate 18 06/12/22 16:00 Blood Pressure 163/129 H 06/12/22 16:00 Pulse Oximetry 99 06/12/22 16:00 Oxygen Delivery Room Air 06/12/22 16:00 Pulse Rate 106 H 06/12/22 16:00 Respiratory Rate 18 06/12/22 16:00 Blood Pressure 163/129 H 06/12/22 16:00 Pulse Oximetry 99 06/12/22 16:00 Oxygen Delivery Room Air 06/12/22 16:00 MDM - Extremity Injury (Lower) MDM Narrative Medical decision making narrative: Patient presents emergency department for left knee pain after jumping out of a truck bed. Patient is neurovascularly intact. Left knee and ankle x-rays without acute osseous abnormalities. Patient placed in Curt wrap and given crutches. Instructed on care of knee sprain. She is to follow-up with orthopedics. She was given warnings to return to the ER Imaging Data Radiologist's impression: ITS Impressions Knee X-Ray 06/12/22 16:31 IMPRESSION: 1: NO ACUTE BONE OR JOINT ABNORMALITY IDENTIFIED. Ankle X-Ray 06/12/22 16:32 IMPRESSION: 1: NO ACUTE BONE OR JOINT ABNORMALITY IDENTIFIED. Critical Care Time Critical Care Time Critical Care Time: No Discharge Plan Discharge Clinical Impression: Acute pain of left knee Patient Disposition: Home, Self-Care Condition: Stable Instructions: Knee Sprain (ED) Additional Instructions: Return to the emergency department if you experience fever, redness and
== END 2022-06-12 17:33 | disposition home or self-care (01) ==
PROVIDERS: Emergency Provider Emergency Medicine; PCP Nurse Practitioner Family
DX: S89.92XA Unspecified injury of left lower leg, initial encounter (principal); F41.9 Anxiety disorder, unspecified; X50.9XXA Other and unspecified overexertion or strenuous movements or postures, initial encounter
CPT/HCPCS: 73562; 73610; 99284

== ENCOUNTER 2022-06-25 13:06 | Outpatient (CLI) | payer OTHER, SELFPAY ==
--- NOTE | ~2022-06-25 | MR_ITS ---
EXAMINATION: MR knee LT wo con DATE: 06/25/2022 15:01 INDICATION: Acute onset left knee pain and swelling post fall with audible pop occurring 3 weeks prio r. TECHNIQUE: Magnetic resonance imaging (MRI) of the left knee was performed without intravenous contra st. Sequences included coronal PD-weighted FSE, coronal PD-weighted FS FSE, sagittal T2-weighted FSE , sagittal PD-weighted FS FSE and axial PD weighted fat saturated FSE. COMPARISON: None. FINDINGS: Medial compartment: Medial meniscus is normal. Articular cartilage is normal. Lateral compartment: Lateral meniscus is normal. Articular cartilage is normal. Patellofemoral compartment: Articular cartilage is normal. Ligaments and tendons: Posterior cruciate ligament is normal. Tear, likely complete of the anterior cruciate ligament. Mild edema extending along the proximal aspect of the otherwise normal-appearing medial collateral ligamen t consistent with low-grade sprain. The fibular collateral ligament is normal. The extensor mechanism is normal. The visualized medial and lateral hamstring tendons as well as the iliotibial band are no rmal. Fluid: Small left knee joint effusion. No loose osteochondral bodies identified. Osseous/other: There is marrow edema without discrete fracture line consistent with bone contusion at the lateral oakes lcus of the lateral femoral condyle. Additional marrow edema surrounding several small linear low sig nal intensity nondisplaced trabecular fracture lines along the posterior rims of both the medial and lateral tibial plateaus. Pattern of bone injuries consistent with an anterior tibial subluxation occu rring in conjunction with an anterior cruciate ligament tear. No pathologic marrow replacing process. IMPRESSION: 1. Anterior tibial subluxation injury with tear likely complete anterior cruciate ligament, nondispla kavon subarticular impaction fractures along the posterolateral the medial lateral tibial plateau and c orresponding bone contusion at the lateral sulcus of the lateral femoral condyle. 2. Additional low-grade sprain of the proximal medial collateral ligament. Reviewed, dictated and finalized at location A. IMPRESSION: 1. Anterior tibial subluxation injury with tear likely complete anterior crucia te ligament, nondisplaced subarticular impaction fractures along the posterolat eral the medial lateral tibial plateau and corresponding bone contusion at the lateral sulcus of the lateral femoral condyle. 2. Additional low-grade sprain of the proximal medial collateral ligament.
== END 2022-06-25 13:07 | disposition home or self-care (01) ==
PROVIDERS: PCP Nurse Practitioner Family; Visit Provider Nurse Practitioner Family
DX: S89.92XD Unspecified injury of left lower leg, subsequent encounter (principal); S83.105D Unspecified dislocation of left knee, subsequent encounter; X58.XXXD Exposure to other specified factors, subsequent encounter
CPT/HCPCS: 73721

== ENCOUNTER 2022-08-20 09:00 | Outpatient (RCR) | payer OTHER, SELFPAY ==
--- NOTE | 2022-07-23 11:32 | PTOPEVAL1 ---
Assessment and note entered by Deepa Ely, PT Evaluation Information Assessment Status Evaluation Diagnosis L knee-sprain medial collateral and anterior cruciate ligaments Onset 06-15-22 Subjective Information jumping out of back of truck bed, knee snapped and pain; to have knee surgery after see blood specialist; drained some fluid out of knee last week, helped some; with initially falling, had some L ankle pain, x ray was negative, but still sore and hurts; Reported Pain Level Pain Score Self Report L knee Additional Pain Score Comments range of 0-8/10; walking tolerance 20-30 minutes; with sleeping awaken 3x/night due to pain; decrease pain with ice, over the counter med not really help; have some swelling in knee-- elevation does not help; Assessment PT Clinical Summary Brianna has the diagnosis of L knee sprain, s/p jumping out of a truck bed. She is to have knee surgery, but is not yet scheduled, due to having to consult specialist about her blood clotting disorder. She also reports some pain in her L ankle since the fall. With the evaluation, she has decreased strength of L knee, with swelling and pain, and decreased knee flexion ROM. Skilled PT services are indicated to increase the strength and ROM of her L knee, improve gait pattern, progress HEP and prepare for knee surgery . Use of modalities PRN for pain control. Plan of Care Interventions Electrical Stimulation,Gait Training,Hot Pack/Cold Pack,Manual Therapy,Neuro Re-education,Patient/ Caregiver Education,Therapeutic Activities, Therapeutic Exercise PT Services Indicated Yes Treatment Frequency and 2x/wk for 3 weeks Duration These treatments will address the objective and functional deficits as defined above. The patient will be advanced safely and appropriately in order for the patient to progress towards his/her prior level of function. Additional exercises will be introduced and as well as a comprehensive home exercise program upon discharge, if needed, ?to ensure carryover of functional gains achieved in the clinic. This treatment plan has been reviewed and agreement upon by the patient.
--- NOTE | 2022-08-05 09:41 | PCPTNOTE ---
Patient called & cancelled scheduled appointment this date due to scheduling conflicts.
--- NOTE | 2022-08-17 08:24 | PCPTNOTE ---
Patient called 5 minutes after appointment start time to cancel. Patient did not give medical front desk specialist a reason for canceling.
--- NOTE | 2022-08-20 11:05 | PTOPDC ---
Assessment and note entered by Adrián Luke, PT, DPT Evaluation Information Assessment Status Progress Diagnosis L knee-sprain medial collateral and anterior cruciate ligaments Onset 06-15-22 Subjective Information Pt reports intermittent pain in her R ankle. She states her L knee has really benefitted from therapy, she states she has been able to return to the activities she enjoys. Pt reports close to 100% improvement, she states most days it feels like she never had an injury. She states is now able to get on and off the floor without any issues. She states sometimes her knee does feel stiff. Pt state she can sleep through the night without being woken d/t pain. She also reports [place] without an increase in pain . Reported Pain Level Pain Score 0,0: Self Report 4/10, at worse in last week Assessment PT Clinical Summary Brianna presents to therapy today for her progress report following 6 visits of skilled therapy for her diagnosis of a L knee sprain. Today she demonstrates active ROM that is equal to the uninvolved side and is pain free. She demonstrates great knee strength that is equal to the uninvolved side, and also pain free. She demonstrates no deviations during gait or stair ambulation, and has equal weight distribution during sit to stand transfers. She reports no functional limitations at this time. She reports good compliance with her HEP and has met all of her therapy goals at this time. Skilled physical therapy services are no longer indicated and she will be discharged at this time. Plan of Care PT Services Indicated No Treatment Frequency and to be discharged Duration
== END 2022-08-24 13:23 | disposition home or self-care (01) ==
LOC: ANHGOSHPT 09:00
PROVIDERS: PCP Nurse Practitioner Family; Referring Provider Orthopaedic Surgery; Visit Provider Orthopaedic Surgery
DX: S83.512D Sprain of anterior cruciate ligament of left knee, subsequent encounter (principal); S83.412D Sprain of medial collateral ligament of left knee, subsequent encounter
CPT/HCPCS: 97110; 97112; 97140; 97161; 97530; 99199

== ENCOUNTER 2023-05-17 18:49 | Emergency (ER) | payer OTHER, SELFPAY ==
[2023-05-17 19:14] VITALS: BP 147/107; PULSE 96; RESP 14; TEMP 36.5; O2SAT 100
[2023-05-17 22:31] VITALS: BP 143/101; PULSE 78; RESP 16; O2SAT 98
[2023-05-17 23:31] LABS: Basophils Absolute Auto 0.1 K/mm3 (0.0-0.1); Basophils Percent Auto 0.5 % (0.2-1.2); Eosinophils Absolute Auto 0.2 K/mm3 (0-0.3); Eosinophils Percent Auto 1.6 % (0-4.4); Hemoglobin 14.1 g/dL (12.0-15.0); Immature Granulocyte Absolute 0.03 K/mm3 (0.00-0.031); Immature Granulocyte Percent A 0.3 % (0-0.5); Lymphocytes Absolute Auto 3.51 K/mm3 (0.9-3.2); Lymphocytes Percent Auto 36.4 % (18.3-44.2); Mean Corpuscular HGB Conc 33.6 g/dl (32-36); Mean Corpuscular Hemoglobin 30.1 pg (26-34); Mean Corpuscular Volume 89.7 fl (80-100); Mean Platelet Volume 9.2 fl (7.4-10.4); Monocytes Absolute Auto 0.8 K/mm3 (0.1-0.6); Monocytes Percent Auto 8.2 % (2.6-8.5); Neutrophils Absolute Auto 5.1 K/mm3 (1.3-6.7); Platelet Count Result 310 k/mm3 (150-375); Red Blood Count 4.68 M/mm3 (4.2-5.4); Red Cell Distribution Width 12.3 % (11.5-14.5); White Blood Count 9.6 K/mm3 (4.5-10.0)
[2023-05-17 23:41] LABS: Alanine Aminotransferase 25 U/L (6-35); Albumin Level 4.3 g/dL (3.5-5.1); Alkaline Phosphatase 94 U/L (38-126); Anion Gap 7 mmol/L (8-16); Aspartate Amino Transferase 27 U/L (14-36); Bilirubin,Total 0.4 mg/dL (0.2-1.3); Blood Urea Nitrogen 14 mg/dL (7-17); Calcium 9.1 mg/dL (8.4-10.2); Carbon Dioxide 27 mmol/L (22-30); Chloride 103 mmol/L (98-107); Estimated CRCL calculation 113 ml/min; Estimated Glomerular Filt Rate > 60; Glucose 95 mg/dL (65-110); Potassium 3.8 mmol/L (3.4-5.0); Sodium 137 mmol/L (137-145)
--- NOTE | 2023-05-17 23:47 | ED.FEMALEGU ---
HPI - Female Genitourinary General Chief complaint: Urogenital-Female Stated complaint: vaginal pain with inflammation Time Seen by Provider: 05/17/23 22:32 Source: patient Mode of arrival: ambulatory Limitations: no limitations History of Present Illness HPI Narrative: This is a 28-year-old female who presents to the ED with chief complaint of vaginal pain and discharge ongoing for the past several weeks. She is concerned after having sexual intercourse with a new partner about 4 weeks ago without protection and symptoms seem to onset after that. She reports she has been seen multiple times for this and has been given prescription for doxycycline and had a Rocephin shot a couple of weeks ago. She finished her Doxy course to its entirety. She states symptoms started to get a little better but returned over the last 5 days. Reports a little bit of abdominal discomfort across the lower abdomen. Denies vaginal bleeding. Reports burning with urination but no hematuria. Denies fevers, chills, shortness of breath, chest pain, problems with bowel movements. Related Data Home Medications Medication Instructions Recorded Confirmed sertraline 100 mg tablet mg 07/31/21 07/15/22 Allergies Allergy/AdvReac Type Severity Reaction Status Date / Time amoxicillin Allergy Unknown Rash Verified 06/21/22 13:07 Penicillins Allergy Unknown Rash Verified 06/21/22 13:07 sulfamethoxazole Allergy Unknown Hives Verified 06/21/22 13:07 trimethoprim Allergy Unknown Hives Verified 06/21/22 13:07 [facility] Past Medical History Medical History (Updated 05/18/23 @ 00:56 by Damon Nash PA-C) Anxiety Depression History of anxiety History of MRSA infection MCL sprain of left knee Rupture of anterior cruciate ligament of left knee Wears glasses Weight gain Surgical History Surgical History History of cholecystectomy Family History Family History Father Depression Grandparent Family history of Alzheimer's disease Mother Family history of blood dyscrasia Grandparent Family history of cataracts Father Family history of mental disorder Other Arthritis Asthma Cerebrovascular accident Diabetes mellitus Family history of lung cancer Hypertension Social History Social History Smoking status: Never smoker Alcohol intake: never Substance use: never Gender identity (if verbalized by the patient): Female Spiritual care concerns: No Exam Narrative: GENERAL: Well-appearing, well-nourished, and in no acute distress. HEAD: Normocephalic, atraumatic. EYES: PERRLA and EOMI. ENT: Nares clear, no rhinorrhea or epistaxis. Mucous membranes moist. Oropharynx without tonsillar hypertrophy exudate or other lesions. NECK: Supple. No adenopathy or masses. CHEST: No respiratory distress. Clear to auscultation. No wheezes rales or rhonchi HEART: Regular rate and rhythm. No murmur heard. Normal peripheral pulses. ABDOMEN: Soft, nontender, nondistended, normal active bowel sounds. MSK: Normal range of motion. No edema. SKIN: Warm, dry, no rash. NEURO: Alert and oriented x3. No focal deficits. PSYCH: Normal mood and affect. Pelvic exam done with female nurse tech oncology technician present: Moderate amount of white/yang discharge in the vaginal vault and at the cervical os. Negative for blood. No vesicular lesions or other lesions visualized. No adnexal tenderness. No cervical motion tenderness. Course Vital Signs Vital signs: Vital Signs Temperature 97.7 F 05/17/23 19:14 Pulse Rate 96 05/17/23 19:14 Respiratory Rate 14 05/17/23 19:14 Blood Pressure 147/107 H 05/17/23 19:14 Pulse Oximetry 100 05/17/23 19:14 Temperature 97.7 F 05/17/23 19:14 Pulse Rate 106 H 05/18/23 01:22 Respiratory Rate 16 05/18/23 01:22 Blood Pressure 160
[2023-05-18 00:33] VITALS: BP 154/109; PULSE 98; RESP 16; O2SAT 99
[2023-05-18] MEDS: metroNIDAZOLE 250 MG TABLET 500 MG PO (01:13)
[2023-05-18] MEDS: cefTRIAXone 1 GM VIAL 0.5 GM IM (01:14)
--- NOTE | 2023-05-18 01:19 | PC.NURSE ---
0115 Rocephin ordered for pt was reconstituted with 2.1 ml of 1% lidocaine hydrochloride per IM administration instructions. 0.5 mg rocephin was administered IM.
[2023-05-18 01:22] VITALS: BP 160/98; PULSE 106; RESP 16; O2SAT 100
== END 2023-05-18 01:24 | disposition home or self-care (01) ==
PROVIDERS: Emergency Provider Physician Assistant; PCP Nurse Practitioner Family
DX: N89.8 Other specified noninflammatory disorders of vagina (principal); R10.2 Pelvic and perineal pain; F41.9 Anxiety disorder, unspecified; F32.A Depression, unspecified; Z86.14 Personal history of Methicillin resistant Staphylococcus aureus infection; Z90.49 Acquired absence of other specified parts of digestive tract
CPT/HCPCS: 36415; 80053; 81025; 85025; 87070; 87255; 87491; 87591; 87808; 96372; 99284; A9270; J0696

== ENCOUNTER 2023-06-20 06:54 | Outpatient (CLI) | payer OTHER, SELFPAY ==
--- NOTE | ~2023-06-20 | CT_ITS ---
EXAMINATION: CT abdomen pelvis wo con DATE: 06/20/2023 07:21 INDICATION: Flank pain TECHNIQUE: Computed tomography (CT) of the abdomen and pelvis was performed without intravenous contr ast. The dose-length product (DLP) was 613.71 mGy-cm. Automated exposure control and iterative recons truction technique were employed. COMPARISON: None FINDINGS: The lung bases are clear. The heart size is normal. There are changes of cholecystectomy. T he liver, spleen, pancreas, and adrenal glands are normal. The kidneys are unremarkable. No stones ar e identified in the kidneys, ureters, or bladder. No hydronephrosis or hydroureter. No pathologically enlarged abdominal or pelvic lymph nodes are identified. No free intraperitoneal gas or evidence of bowel obstruction. There is an umbilical hernia containing fat. IMPRESSION: 1. No CT correlate for the patient's symptoms. No urolithiasis identified. Reviewed, dictated and finalized at location A.
== END 2023-06-20 06:55 | disposition home or self-care (01) ==
PROVIDERS: PCP Nurse Practitioner Family; Visit Provider Obstetrics & Gynecology
DX: R10.2 Pelvic and perineal pain (principal)
CPT/HCPCS: 74176

== ENCOUNTER 2023-11-06 20:32 | Emergency (ER) | payer OTHER, SELFPAY ==
--- NOTE | ~2023-11-06 | CT_ITS ---
CT of the Abdomen and Pelvis: Indication: Abdominal pain Technique: 2.5 mm axial scans were obtained through the abdomen and pelvis following intravenous adm inistration of 100 cc of Omnipaque 350. Dose reduction technique was used on this scan by utilizing a utomated exposure control and iterative reconstruction technique. The dose-length product (DLP) was 7 91.50 mGy-cm. COMPARISON: 06/20/2023 Findings: Scans through the lung bases are unremarkable. The liver, spleen, pancreas, adrenals and kidneys are within normal limits. Gallbladder probably abse nt. No evidence of aortic aneurysm. No lymphadenopathy. No bowel obstruction or bowel wall thickening. There is no evidence to suggest acute appendicitis. Sm all fat-containing umbilical hernia present. Images through the pelvis were performed. Urinary bladder unremarkable. Small bilateral ovarian cysts are of doubtful clinical significance. No ascites. Impression: Small fat-containing umbilical hernia. Reviewed, dictated and finalized at [facility]. [facility] RUBBER Impression: Small fat-containing umbilical hernia.
[2023-11-06 20:35] VITALS: BP 147/118; PULSE 116; RESP 16; TEMP 36.1; O2SAT 100
[2023-11-06 21:00] LABS: Basophils Percent Auto 0.3 % (0.2-1.2); Eosinophils Absolute Auto 0.1 K/mm3 (0-0.3); Eosinophils Percent Auto 0.8 % (0-4.4); Hematocrit 47.8 % (37.0-47.0); Hemoglobin 15.6 g/dL (12.0-15.0); Immature Granulocyte Absolute 0.06 K/mm3 (0.00-0.031); Immature Granulocyte Percent A 0.4 % (0-0.5); Lymphocytes Absolute Auto 0.91 K/mm3 (0.9-3.2); Lymphocytes Percent Auto 6.4 % (18.3-44.2); Mean Corpuscular HGB Conc 32.6 g/dl (32-36); Mean Corpuscular Hemoglobin 29.3 pg (26-34); Mean Corpuscular Volume 89.8 fl (80-100); Mean Platelet Volume 9.1 fl (7.4-10.4); Monocytes Absolute Auto 0.6 K/mm3 (0.1-0.6); Monocytes Percent Auto 4.3 % (2.6-8.5); Neutrophils Absolute Auto 12.5 K/mm3 (1.3-6.7); Neutrophils Percent Auto 87.8 % (45.5-73.1); Platelet Count Result 351 k/mm3 (150-375); Red Blood Count 5.32 M/mm3 (4.2-5.4); Red Cell Distribution Width 12.1 % (11.5-14.5); White Blood Count 14.3 K/mm3 (4.5-10.0)
[2023-11-06 21:14] LABS: Alanine Aminotransferase 31 U/L (6-35); Alkaline Phosphatase 119 U/L (38-126); Anion Gap 14 mmol/L (8-16); Aspartate Amino Transferase 29 U/L (14-36); Bilirubin,Total 0.7 mg/dL (0.2-1.3); Blood Urea Nitrogen 13 mg/dL (7-17); Calcium 9.6 mg/dL (8.4-10.2); Carbon Dioxide 24 mmol/L (22-30); Chloride 103 mmol/L (98-107); Estimated CRCL calculation 104 ml/min; Estimated Glomerular Filt Rate > 60; Glucose 134 mg/dL (65-110); Lipase 100 U/L (23-300); Potassium 4.1 mmol/L (3.4-5.0); Sodium 141 mmol/L (137-145)
--- NOTE | 2023-11-06 21:41 | ECG_ITS ---
Measurements Intervals [place] Rate: 125 P: 31 FL: 159 QRS: -12 QRSD: 88 T: 33 QT: 406 QTc: 587 Interpretive Statements SINUS TACHYCARDIA BORDERLINE R WAVE PROGRESSION, ANTERIOR LEADS NONSPECIFIC T-WAVE ABNORMALITY- ANT/INF LEADS ABNORMAL ECG COMPARED TO ECG 07/26/2021 17:48:19 SINUS TACHYCARDIA NOW PRESENT Electronically Signed On 11-07-2023 6:55:10 [employer] by Maxim Stringer D.O.
--- NOTE | 2023-11-06 21:41 | PC.NURSE ---
pt to intake desk and reports she is having chest pain.
[2023-11-06 21:51] VITALS: BP 140/93; PULSE 113; RESP 17; O2SAT 100
[2023-11-07 01:13] VITALS: BP 139/100; PULSE 117; RESP 20; TEMP 37.3; O2SAT 96
[2023-11-07] MEDS: SODIUM CHLORIDE 0.9% IV 1,000 ML 999 ML IV CONT ×2 (01:19→02:56)
[2023-11-07] MEDS: MORPHINE SULFATE (*CRX) 4 MG/ML INJ IV PUSH (01:19)
[2023-11-07] MEDS: ONDANSETRON INJ 4 MG/2 ML VIAL IV PUSH (01:19)
--- NOTE | 2023-11-07 01:37 | ED.NAVMDI ---
HPI - Nausea/Vomiting/Diarrhea General Chief complaint: Nausea/Vomiting/Diarrhea Stated complaint: Vomiting, diarrhea, chills, chest pain Time Seen by Provider: 11/07/23 00:36 Source: patient Mode of arrival: ambulatory Limitations: no limitations History of Present Illness HPI Narrative: Patient is a 28-year-old female who presents the ED with report of nausea, vomiting, diarrhea. Patient reports having persistent nausea, vomiting, diarrhea for the last 8 hours. She has been unable to keep down any food or drink. Feels very weak and dehydrated. She notes that she ate [place] food prior to the onset of her symptoms, but states she did not think it was contaminated. Patient reports having pain across her lower abdomen, chills, diaphoresis. She also reports about an hour after the vomiting began she developed pain in her chest. Denies difficulty breathing. Denies known fever. Denies rectal bleeding or melena. Related Data Home Medications Medication Instructions Recorded Confirmed sertraline 100 mg tablet mg 07/31/21 07/15/22 Allergies Allergy/AdvReac Type Severity Reaction Status Date / Time amoxicillin Allergy Unknown Rash Verified 06/21/22 13:07 Penicillins Allergy Unknown Rash Verified 06/21/22 13:07 sulfamethoxazole Allergy Unknown Hives Verified 06/21/22 13:07 trimethoprim Allergy Unknown Hives Verified 06/21/22 13:07 Review of Systems Review of Systems: CONSTITUTIONAL: See HPI. CARDIOVASCULAR: See HPI RESPIRATORY: Denies dyspnea. GASTROINTESTINAL: See HPI. GENITOURINARY: Denies dysuria or hematuria. All systems reviewed & are unremarkable except as noted in HPI and below PMFSH Past Medical History Medical History Anxiety Depression History of anxiety History of MRSA infection MCL sprain of left knee Rupture of anterior cruciate ligament of left knee Wears glasses Weight gain Surgical History Surgical History History of cholecystectomy Family History Family History Father Depression Grandparent Family history of Alzheimer's disease Mother Family history of blood dyscrasia Grandparent Family history of cataracts Father Family history of mental disorder Other Arthritis Asthma Cerebrovascular accident Diabetes mellitus Family history of lung cancer Hypertension Social History Social History Smoking status: Never smoker Alcohol intake: never Substance use: never Gender identity (if verbalized by the patient): Female Spiritual care concerns: No Exam Narrative: GENERAL: Mildly ill appearing, obese with BMI of 31.2, non-toxic, in no acute distress. HEAD: Normocephalic, atraumatic. RESPIRATORY: Airway patent, respirations nonlabored. Clear to auscultation bilaterally, no rales, rhonchi, wheezing. CARDIOVASCULAR: Tachycardic with regular rhythm without murmurs, rubs, or gallops. ABDOMINAL: Soft, diffuse lower abdominal tenderness. No significant focal tenderness. Nondistended. Normoactive BS. MUSCULOSKELETAL: Moves all extremities. No gross deformities. SKIN: Warm, dry, normal color. NEURO: A&O X3. Speech clear. Cranial nerves II-XII grossly intact. Steady gait. No ataxic movements. PSYCHIATRIC: Appropriate mood and affect. Normal interaction. Course Vital Signs Vital signs: Vital Signs Temperature 97 F L 11/06/23 20:35 Pulse Rate 116 H 11/06/23 20:35 Respiratory Rate 16 11/06/23 20:35 Blood Pressure 147/118 H 11/06/23 20:35 Pulse Oximetry 100 11/06/23 20:35 Oxygen Delivery Room Air 11/06/23 20:35 Temperature 98.6 F 11/07/23 05:52 Pulse Rate 98 11/07/23 05:52 Respiratory Rate 20 11/07/23 05:52 Blood Pressure 122/88 11/07/23 05:52 Pulse Oximetry 100 11/07/23 05:52 Oxygen
[2023-11-07 01:50] LABS: Magnesium 2.1 mg/dL (1.6-2.3)
[2023-11-07 01:51] LABS: Appearance Urine Cloudy (Clear); Bacteria Urine 2+ /hpf; Bilirubin Urine Negative (Negative); Blood Urine Negative (Negative); Color Urine Dark Yellow (Yellow); Glucose Urine UA Negative (Negative); Ketones Urine Trace mg/dL (Negative); Leukocyte Esterase Ur Trace LEU/UL (Negative); Nitrate Urine Negative (Negative); Protein Urine 2+ mg/dL (Negative); Squamous Epithelial Cell Urine Moderate /hpf (Few); WBC Urine 21-50 /hpf
[2023-11-07 01:52] LABS: Need Manual Microscopic Reviewed; Specific Grav Ur 1.039 (1.001-1.035)
[2023-11-07 01:53] LABS: Add Urine Microscopic? YES
[2023-11-07 02:02] LABS: Troponin I < 0.012 ng/mL (0.000-0.034)
[2023-11-07] MEDS: HYDROmorphone HCL INJ (*CRX) 1 MG/ML SYR 0.5 MG IV PUSH (02:56)
[2023-11-07] MEDS: KETOROLAC 30 MG/ML VIAL (*BKC) IV PUSH (02:56)
[2023-11-07 04:33] LABS: Reflex Lactic Acid Yes or No Add Lactic
[2023-11-07 05:12] LABS: Lactic Acid Reflex 2.2 mmol/L (0.7-2.0)
[2023-11-07 05:52] VITALS: BP 122/88; PULSE 98; RESP 20; TEMP 37; O2SAT 100
== END 2023-11-07 05:53 | disposition home or self-care (01) ==
PROVIDERS: Emergency Medicine; Emergency Provider Physician Assistant; PCP Nurse Practitioner Family
DX: K52.9 Noninfective gastroenteritis and colitis, unspecified (principal); N39.0 Urinary tract infection, site not specified; R11.2 Nausea with vomiting, unspecified; F41.9 Anxiety disorder, unspecified; F32.A Depression, unspecified
CPT/HCPCS: 36415; 74177; 80053; 81001; 81025; 83605; 83690; 83735; 84484; 85025; 87040; 87077; 87086; 87088; 93005; 96361; 96365; 96375; 99284; J0696; J1170; J1885; J2270; J2405; J7030; Q9967

== ENCOUNTER 2024-04-09 16:09 | Emergency (ER) | payer OTHER, MEDICAID, SELFPAY ==
--- NOTE | ~2024-04-09 | CT_ITS ---
EXAMINATION: CT abdomen pelvis w con DATE: 04/09/2024 17:53 INDICATION: r/o appy -rlq abdomen pain TECHNIQUE: Computed tomography (CT) of the abdomen and pelvis was performed with 100 mL Omnipaque-350 intravenous contrast. Automated exposure control and iterative reconstruction technique were employe d. The dose-length product was 664.97 mGy-cm. COMPARISON: 11/07/2023. FINDINGS: Lower thorax: Unremarkable Liver: Diffusely low-density parenchyma. Enlarged. Biliary/Gallbladder: Gallbladder is absent. No bile duct dilation. Pancreas: No mass or duct dilation. Spleen: Normal. Adrenals:No mass. Kidneys: No suspicious mass, obstructing stone, or hydronephrosis. GI tract: No small or large bowel dilation. Normal appendix. Diverticulosis without diverticulitis. Mesentery/Peritoneum: No ascites, mass, or free air. Retroperitoneum: No mass. Pelvis: The urinary bladder is nearly empty. Normal uterus. Normal bilateral ovaries. Stable bilatera l ovarian cysts. Soft Tissues: Small uncomplicated appearing fat-containing umbilical hernia. Bones: No acute osseous finding. IMPRESSION: Hepatomegaly with steatosis. Otherwise no acute abdominal pelvic process detected. Reviewed, dictated and finalized at location [facility].
[2024-04-09 16:20] VITALS: BP 160/110; PULSE 87; RESP 18; TEMP 36.6; O2SAT 99
--- NOTE | 2024-04-09 17:14 | ED.ABDPAIN ---
HPI - Abdominal Pain General Chief Complaint: Abdominal Pain <Allan Kendall APRN - Last Filed: 04/09/24 17:18> Stated Complaint: abd pain <Allan Kendall APRN - Last Filed: 04/09/24 17:18> Time Seen by Provider: 04/09/24 17:14 <Allan Kendall APRN - Last Filed: 04/09/24 17:18> Focused HPI: Brianna is a 29-year-old female patient presenting to emergency room with complaints of right lower quadrant pain for the past 4-5 days. She reports that the pain is worse with walking and movement. Is concerned for appendicitis. History of cholecystitis in the past. Also reports some urinary symptoms and nausea. Last bowel movement was this morning and painful to bear down over the right lower quadrant GENERAL: Well-appearing, well-nourished, and in no acute distress. HEAD: Normocephalic, atraumatic. CHEST: Clear to auscultation. No respiratory distress. HEART: Regular rate and rhythm. NEURO: Alert and oriented x3. Patient screened in triage and initial orders placed. Additional care and disposition to be based upon diagnostic testing and treatment. <Allan Kendall APRN - Last Filed: 04/09/24 17:18> Source: patient <Allan Kendall APRN - Last Filed: 04/09/24 17:18> Mode of arrival: ambulatory <Allan Kednall APRN - Last Filed: 04/09/24 17:18> Limitations: no limitations <Allan Kendall APRN - Last Filed: 04/09/24 17:18> History of Present Illness HPI narrative: agree with HPI. 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 She did not think it was an STI. She was prescribed medication for BV however patient would like STI testing. <Fernando Penaloza MD - Last Filed: 04/10/24 07:59> Related Data Home Medications: Home Medications Medication Instructions Recorded Confirmed sertraline 100 mg tablet mg 07/31/21 07/15/22 <Allan Kendall APRN - Last Filed: 04/09/24 17:18> Allergies/Adverse Reactions: Allergies Allergy/AdvReac Type Severity Reaction Status Date / Time amoxicillin Allergy Unknown Rash Verified 06/21/22 13:07 Penicillins Allergy Unknown Rash Verified 06/21/22 13:07 sulfamethoxazole Allergy Unknown Hives Verified 06/21/22 13:07 trimethoprim Allergy Unknown Hives Verified 06/21/22 13:07 <Allan Kendall APRN - Last Filed: 04/09/24 17:18> Review of Systems Review of Systems: All systems reviewed & are unremarkable except as noted in HPI and below <Fernando Penaloza MD - Last Filed: 04/10/24 07:59> Constitutional: Constitutional: Reports no additional constitutional complaints <Fernando Penaloza MD - Last Filed: 04/10/24 07:59> ENT: Reports system reviewed and no additional complaints, except as documented <Fernando Penaloza MD - Last Filed: 04/10/24 07:59> Cardiovascular: Cardiovascular: Reports no additional cardiovascular complaints <Fernando Penaloza MD - Last Filed: 04/10/24 07:59> Respiratory: Respiratory: Reports no additional respiratory complaints <Fernando Penaloza MD - Last Filed: 04/10/24 07:59> Gastrointestinal: Gastrointestinal: Reports abdominal pain, Denies nausea and Denies vomiting <Fernando Penaloza MD - Last Filed: 04/10/24 07:59> Genitourinary: Genitourinary: Denies abnormal vaginal bleeding, Reports dysuria, Denies flank pain and Reports vaginal discharge <Fernando Penaloza MD - Last Filed: 04/10/24 07:59> Musculoskeletal: Musculoskeletal: Reports no additional musculoskeletal complaints <Fernando Penaloza MD - Last Filed: 04/10/24 07:59> PMFSH Past Medical History Medical History: Medical History Anxiety Depression History of anxiety History of MRSA infection MCL sprain of left knee Rupture of anterior cruciate ligament of left knee Wears glasses Weight gain <Allan Kendall APRN - Last Filed: 04/09/24 17:18> Surgical History Surgical History: Surgic
[2024-04-09 17:28] LABS: Basophils Percent Auto 0.4 % (0.2-1.2); Eosinophils Absolute Auto 0.1 K/mm3 (0-0.3); Eosinophils Percent Auto 0.6 % (0-4.4); Hematocrit 39.8 % (37.0-47.0); Hemoglobin 13.6 g/dL (12.0-15.0); Immature Granulocyte Absolute 0.03 K/mm3 (0.00-0.031); Immature Granulocyte Percent A 0.3 % (0-0.5); Lymphocytes Absolute Auto 1.85 K/mm3 (0.9-3.2); Lymphocytes Percent Auto 18.5 % (18.3-44.2); Mean Corpuscular HGB Conc 34.2 g/dl (32-36); Mean Corpuscular Hemoglobin 29.8 pg (26-34); Mean Corpuscular Volume 87.1 fl (80-100); Mean Platelet Volume 9.1 fl (7.4-10.4); Monocytes Absolute Auto 0.6 K/mm3 (0.1-0.6); Monocytes Percent Auto 6.4 % (2.6-8.5); Neutrophils Absolute Auto 7.4 K/mm3 (1.3-6.7); Neutrophils Percent Auto 73.8 % (45.5-73.1); Platelet Count Result 291 k/mm3 (150-375); Red Blood Count 4.57 M/mm3 (4.2-5.4); Red Cell Distribution Width 12.2 % (11.5-14.5)
[2024-04-09 17:40] LABS: Alanine Aminotransferase 26 U/L (6-35); Albumin Level 4.7 g/dL (3.5-5.1); Alkaline Phosphatase 103 U/L (38-126); Anion Gap 9 mmol/L (4-12); Aspartate Amino Transferase 34 U/L (14-36); Bilirubin,Total 0.6 mg/dL (0.2-1.3); Blood Urea Nitrogen 11 mg/dL (7-17); Carbon Dioxide 25 mmol/L (22-30); Chloride 104 mmol/L (98-107); Estimated Glomerular Filt Rate > 60; Glucose 107 mg/dL (65-110); Lipase 57 U/L (23-300); Potassium 3.9 mmol/L (3.4-5.0); Sodium 138 mmol/L (137-145)
[2024-04-09] MEDS: ONDANSETRON INJ 4 MG/2 ML VIAL IV PUSH (17:42)
[2024-04-09] MEDS: MORPHINE SULFATE (*CRX) 4 MG/ML INJ IV PUSH ×2 (17:42→19:52)
[2024-04-09 17:43] LABS: Appearance Urine Clear (Clear); Bacteria Urine 1+ /hpf; Bilirubin Urine Negative (Negative); Blood Urine Negative (Negative); Color Urine Dark Yellow (Yellow); Glucose Urine UA Negative (Negative); Ketones Urine Trace mg/dL (Negative); Leukocyte Esterase Ur 1+ LEU/UL (Negative); Nitrate Urine Negative (Negative); Non Pathogenic Casts 0-2; Protein Urine 1+ mg/dL (Negative); RBC Urine 0-2 /hpf (0-2); Squamous Epithelial Cell Urine Occasional /hpf (Few); pH Urine 5.5 (5.0-9.0)
[2024-04-09 17:56] LABS: Estimated Glomerular Filt Rate > 60
[2024-04-09 18:00] LABS: Add Urine Microscopic? YES; Specific Grav Ur 1.032 (1.001-1.035)
[2024-04-09 19:40] VITALS: BP 154/111; PULSE 86; RESP 16; O2SAT 100
[2024-04-09 20:42] LABS: Chlamydia trachomatis NOT DETECTED (NOT DETECTE); Neisseria gonorrhoeae PCR NOT DETECTED (NOT DETECTE)
[2024-04-09] MEDS: NITROFURANTOIN MONOHYD MACROCR 100 MG CAP PO (21:20)
== END 2024-04-09 21:30 | disposition home or self-care (01) ==
PROVIDERS: Emergency Medicine; Nurse Practitioner Family; Emergency Provider Emergency Medicine; PCP Nurse Practitioner Family
DX: N39.0 Urinary tract infection, site not specified (principal); F41.9 Anxiety disorder, unspecified; F32.A Depression, unspecified; Z86.14 Personal history of Methicillin resistant Staphylococcus aureus infection; Z90.49 Acquired absence of other specified parts of digestive tract; K76.0 Fatty (change of) liver, not elsewhere classified
CPT/HCPCS: 36415; 74177; 80053; 81001; 81025; 83690; 85025; 87086; 87088; 87491; 87591; 96374; 96375; 96376; 99284; A9270; J2270; J2405; Q9967